=== PATIENT | female | born 1965 | race Hispanic/Latino ===

== ENCOUNTER 2018-08-13 11:24 | Emergency (ER) | payer OTHER ==
[2018-08-13] MEDS ORDERED: ONDANSETRON 4 MG/2 ML VIAL ONE (12:43)
[2018-08-13] MEDS ORDERED: MORPHINE 2 MG/ML SYR ONE (12:43)
[2018-08-13 12:44] LABS: Absolute Lymphocytes (CBC) 1.1 K/uL (0.7-4.9); Absolute Monocytes 0.5 K/uL (0.1-1.3); Absolute Neutrophil 7.5 K/uL (1.8-8.0); Basophils % 0.6 % (0-1.3); Eosinophils % 1.7 % (0-4.4); Hematocrit 42.1 % (36.0-45.0); Lymphocytes % 11.4 % (15.3-44.8); MCH 27.1 pg (27.0-35.0); MCV 80.4 fL (80-100); MPV 8.9 fL (7.6-11.3); Monocytes % 5.5 % (3.3-12.3); RBC Red Blood Cell Count 5.23 M/uL (3.86-4.86)
[2018-08-13 12:52] LABS: Potassium 3.7 mmol/L (3.5-5.1)
--- NOTE | 2018-08-13 13:38 | RAD REPORT ---
EXAM DESCRIPTION: CTFacial Bones W Con Mpr08/13/2018 1:19 pm CLINICAL HISTORY: Right facial pain and swelling COMPARISON: None. TECHNIQUE: Computed axial tomography of the face obtained with coronal and sagittal reconstruction. 50 cc Isovue-[address] scans are performed using dose optimization technique as appropriate and may include automated exposure control or mA/KV adjustment according to patient size. FINDINGS: Edema is present within the subcutaneous tissues the right face. An abscess is not seen. The parotid and submandibular glands appear unremarkable. The parapharyngeal fat is clear. Fluid within the sinuses is not noted. Mild opacification of the right mastoids IMPRESSION: Mild edema within the subcutaneous tissues of the right face may indicate a cellulitis Mild opacification the right mastoids may indicate a mild mastoiditis .
[2018-08-13] MEDS ORDERED: MORPHINE 4 MG/ML SYR ONE (14:48)
[2018-08-13] MEDS ORDERED: CEFTRIAXONE/SWI 1gm 1 GM/10 ML SYR ONE (14:49)
[2018-08-13] MEDS ORDERED: KETOROLAC 30 MG/ML INJ ONE (14:49)
--- NOTE | 2018-08-13 15:37 | EDPHYS ---
Physician Documentation [facility] Name: Bryon Ortiz Age: 52 yrs Sex: Female : 1965 Arrival Date: 08/13/2018 Time: 11:27 Bed 9 Private MD: Darryl Murray C ED Physician Darryl Figueredo HPI: 08/13 12:08 This 52 yrs old Female presents to ER via Ambulatory with complaints of Ear jmm Pain. 12:08 The patient presents with pain, swelling. Onset: The symptoms/episode began/occurred jmm gradually, 1 day(s) ago. Modifying factors: The symptoms are alleviated by nothing, the symptoms are aggravated by nothing. This is a 52 year old female with a history of DM, htn that presents to the ED with right ear pain beginning yesterday. patient denies recent illness. patient also complains of right sided sore throat. 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 - Social history:: Smoking status: Patient/guardian denies using tobacco. - Ebola Screening: : Patient denies travel to an Ebola-affected area in the 21 days before illness onset. ROS: 12:08 Constitutional: Negative for fever, chills, and weight loss. jmm 12:08 Cardiovascular: Negative for chest pain, palpitations, and edema, Respiratory: Negative for shortness of breath, cough, wheezing, and pleuritic chest pain, Skin: Negative for injury, rash, and discoloration, Neuro: Negative for headache, weakness, numbness, tingling, and seizure. 12:08 ENT: Positive for ear pain, sore throat. 12:08 All other systems are negative. Exam: 12:08 Constitutional: This is a well developed, well nourished patient who is awake, alert, jmm and in no acute distress. Head/Face: atraumatic. Eyes: EOMI, no conjunctival erythema appreciated 12:08 Cardiovascular: Regular rate and rhythm. No edema appreciated Respiratory: Normal respirations, no respiratory distress appreciated Back: Normal ROM Skin: General appearance color normal MS/ Extremity: Moves all extremities, no obvious deformities appreciated, no edema noted to the lower extremities Neuro: Awake and alert, normal gait Psych: Behavior is normal, Mood is normal, Patient is cooperative and pleasant 12:08 ENT: TM's: erythema, that is mild, on the right, Posterior pharynx: is normal. 12:08 Neck: right sided submandibular swelling. Vital Signs: 11:32 BP 171 / 105; Pulse 112; Resp 20; Temp 97.6; Pulse Ox 96% on R/A; Weight 90.72 kg (R); aj1 Height 4 ft. 11 in. (149.86 cm) (R); Pain 9/10; 14:56 BP 152 / 79; Pulse 99; Resp 14; Pulse Ox 96% on R/A; Pain 4/10; ss 11:32 Body Mass Index 40.39 (90.72 kg, 149.86 cm) aj1 MDM: 12:08 Patient medically screened. [facility] 15:32 Data reviewed: vital signs, nurses notes. Counseling: I had a detailed discussion with [facility] the patient and/or guardian regarding: the historical points, exam findings, and any diagnostic results supporting the discharge/admit diagnosis, lab results, radiology results, the need for outpatient follow up, to return to the emergency department if symptoms worsen or persist or if there are any questions or concerns that arise at home. 15:32 Data interpreted: Pulse oximetry: on room air is 96 %. Interpretation: normal. [facility] 08/13 12:10 Order name: Creatinine for Radiology; Complete Time: 12:54 [facility] 08/13 12:10 Order name: BMP; Complete Time: 12:54 [facility] 08/13 12:10 Order name: CBC with Diff; Complete Time: 12:54 [facility] 08/13 12:10 Order name: CT Facial Bones W/ Con \\T\\ Mpr; Complete Time: 13:40 [facility] 08/13 12:10 Order name: Saline Lock; Complete Time: 12:31 [facility] Administered Medications: 12:34 Drug: Zofran 2 mg Route: IVP; Site: right antecubital; ss 14:17 Follow up: Response: No adverse reaction; Nausea is decreased ss 12:39 Drug: morphine 2 mg Route: IVP; Site: right antecubital; ss 14:17 Follow up: Response: No adverse reaction; Pain is decreased ss 14:47 Drug: Rocephin 1 grams Route: IV; Rate: per protocol; Site: right antecubital; ss 14:50 Drug: morphine 4 mg Route: IVP; Site: right antecubital; ss 14:53 Drug: Ketorolac 30 mg Route: IVP; Site: right antecubital; ss 14:54 Not Given (Other Intervention Used): Rocephin - (cefTRIAXone) 1 grams IVPB once over 30 ss mins; (mix in 50 mL NS) Disposition: 08/14 07:45 Co-signature as Attending Physician, Darryl Figueredo MD. Disposition: 08/13/18 15:36 Discharged to Home. Impression: facial cellulitis. - Condition is Stable. - Discharge Instructions: Cellulitis, Adult. - Prescriptions for cefdinir 300 mg Oral capsule - take 1 capsule by ORAL route every 12 hours; 20 capsule. Tylenol- Codeine #3 300-30 mg Oral Tablet - take 1 tablet by ORAL route every 6 hours As needed; 20 tablet. - Medication Reconciliation Form, Thank You Letter, Antibiotic Education, Prescription Opioid Use form. - Follow up: Kacey Motley MD; When: 2 - 3 days; Reason: Recheck today's complaints, Continuance of care, Re-evaluation by your physician. Signatures: Dispatcher [employer] EDMS Magdalena Iyer RN RN aj1 Ricky Arriaga PA PA jmm Smirch, Shelby, RN RN Darryl Figueredo MD MD Hoda Mcrae Corrections: (The following items were deleted from the chart) 08/13 15:39 15:36 08/13/2018 15:36 Discharged to Home. Impression: facial cellulitis. Condition is eb Stable. Forms are Medication Reconciliation Form, Thank You Letter, Antibiotic Education, Prescription Opioid Use. Follow up: Kacey Motley; When: 2 - 3 days; Reason: Recheck today's complaints, Continuance of care, Re-evaluation by your physician. michelet
--- NOTE | 2018-08-13 15:37 | ER ---
Nurse's Notes [facility] Name: Bryon Ortiz Age: 52 yrs Sex: Female : 1965 Arrival Date: 08/13/2018 Time: 11:27 Bed 9 Private MD: Darryl Murray C Diagnosis: facial cellulitis Presentation: 08/13 11:30 Presenting complaint: Patient states: Right ear pain since yesterday. Reports chills. aj1 Denies drainage from right ear. Transition of care: patient was not received from another setting of care. Onset of symptoms was August 12, 2018. Risk Assessment: Do you want to hurt yourself or someone else? Patient reports no desire to harm self or others. Initial Sepsis Screen: Does the patient meet any 2 criteria? No. Patient's initial sepsis screen is negative. Does the patient have a suspected source of infection? No. Patient's initial sepsis screen is negative. Care prior to arrival: None. 11:30 Method Of Arrival: Ambulatory aj1 11:30 Acuity: DELORES 4 aj1 Triage Assessment: 11:32 General: Appears in no apparent distress. uncomfortable, Behavior is calm, cooperative, aj1 appropriate for age. Pain: Complains of pain in right ear Pain. Pain: Pain currently is 9 out of 10 on a pain scale. EENT: Reports ear pain. Neuro: Level of Consciousness is awake, alert, obeys commands. Cardiovascular: Patient's skin is warm and dry. Respiratory: Airway is patent Respiratory effort is even, unlabored, Respiratory pattern is regular, symmetrical. 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 - Social history:: Smoking status: Patient/guardian denies using tobacco. - Ebola Screening: : Patient denies travel to an Ebola-affected area in the 21 days before illness onset. Screenin:35 Abuse screen: Denies threats or abuse. Denies injuries from another. Nutritional aj1 screening: No deficits noted. Tuberculosis screening: No symptoms or risk factors identified. Assessment: 11:35 General: Appears in no apparent distress. uncomfortable, Behavior is calm, cooperative, aj1 appropriate for age. Pain: Complains of pain in right ear Pain radiates to right jaw Pain currently is 9 out of 10 on a pain scale. Quality of pain is described as sharp, stabbing. Neuro: Level of Consciousness is awake, alert, obeys commands. Cardiovascular: Patient's skin is warm and dry. Respiratory: Airway is patent Respiratory effort is even, unlabored, Respiratory pattern is regular, symmetrical. GI: No signs and/or symptoms were reported involving the gastrointestinal system. : No signs and/or symptoms were reported regarding the genitourinary system. EENT: Reports ear pain. Derm: No signs and/or symptoms reported regarding the dermatologic system. Skin is pink, warm \\T\\ dry. normal. Musculoskeletal: No signs and/or symptoms reported regarding the musculoskeletal system. Circulation, motion, and sensation intact. Vital Signs: 11:32 BP 171 / 105; Pulse 112; Resp 20; Temp 97.6; Pulse Ox 96% on R/A; Weight 90.72 kg (R); aj1 Height 4 ft. 11 in. (149.86 cm) (R); Pain 9/10; 14:56 BP 152 / 79; Pulse 99; Resp 14; Pulse Ox 96% on R/A; Pain 4/10; ss 11:32 Body Mass Index 40.39 (90.72 kg, 149.86 cm) aj1 ED Course: 11:27 Patient arrived in ED. sb2 11:27 Darryl Murray MD is Private Physician. sb2 11:31 Triage completed. aj1 11:32 Arm band placed on Patient placed in an exam room. aj1 11:35 Patient has correct armband on for positive identification. Bed in low position. aj1 11:35 No provider procedures requiring assistance completed. aj1 11:36 Ricky Arriaga PA is PHCP. [facility] 11:36 Darryl Figueredo MD is Attending Physician. [facility] 12:25 Racheal Connelly RN is Primary Nurse. ss 12:31 Inserted saline lock: 20 gauge in right antecubital area, using aseptic technique. ss Blood collected. 13:20 CT Facial Bones W/ Con \\T\\ Mpr In Process Unspecified. EDMS 15:35 Kacey Motley MD is Referral Physician. jmm 15:45 IV discontinued, intact, bleeding controlled, No redness/swelling at site. Pressure ss dressing applied. Administered Medications: 12:34 Drug: Zofran 2 mg Route: IVP; Site: right antecubital; ss 14:17 Follow up: Response: No adverse reaction; Nausea is decreased ss 12:39 Drug: morphine 2 mg Route: IVP; Site: right antecubital; ss 14:17 Follow up: Response: No adverse reaction; Pain is decreased ss 14:47 Drug: Rocephin 1 grams Route: IV; Rate: per protocol; Site: right antecubital; ss 14:50 Drug: morphine 4 mg Route: IVP; Site: right antecubital; ss 14:53 Drug: Ketorolac 30 mg Route: IVP; Site: right antecubital; ss 14:54 Not Given (Other Intervention Used): Rocephin - (cefTRIAXone) 1 grams IVPB once over 30 ss mins; (mix in 50 mL NS) Outcome: 15:36 Discharge ordered by MD. jmm 15:39 Patient left the ED. eb 15:45 Discharged to home ambulatory, with significant other. ss 15:45 Condition: good 15:45 Discharge instructions given to patient, family, Instructed on discharge instructions, follow up and referral plans. medication usage, Demonstrated understanding of instructions, follow-up care, medications, Prescriptions given X 2. Signatures: Dispatcher [employer] EDMS Magdalena Iyer RN RN aj1 Ricky Arriaga PA PA jmm Smirch, Shelby, RN RN ss Billeau, Sheri sb2 Hoda Mcrae
[2018-08-13 15:55] VITALS: TEMP 97.6; O2SAT 96
[2018-08-13 15:56] VITALS: BP 152/79
== END 2018-08-13 15:39 | disposition home or self-care (01) ==
LOC: ER 11:24
DX: L03.211 Cellulitis of face (principal); I10 Essential (primary) hypertension; E11.9 Type 2 diabetes mellitus without complications; Z88.0 Allergy status to penicillin
CPT/HCPCS: 36415; 70487; 76377; 80048; 85025; 96374; 96375; 99284; J0696; J2270; J2405; Q9967

== ENCOUNTER 2019-06-12 17:21 | Emergency (ER) | payer OTHER, SELFPAY ==
[2019-06-12] MEDS ORDERED: KETOROLAC 30 MG/ML INJ ONE (18:24)
[2019-06-12] MEDS ORDERED: METHYLPREDNISOLONE 125 MG INJ ONE (18:24)
--- NOTE | 2019-06-12 18:24 | ER ---
Nurse's Notes [facility] Name: Bryon Ortiz Age: 53 yrs Sex: Female : 1965 Arrival Date: 06/12/2019 Time: 17:22 Bed 18 Private MD: Diagnosis: Rash and other nonspecific skin eruption Presentation: 06/12 17:41 Presenting complaint: Patient states: R CALF WOUND x 2 DAYS. Transition of care: ss patient was not received from another setting of care. Onset of symptoms is unknown. Risk Assessment: Do you want to hurt yourself or someone else? Patient reports no desire to harm self or others. Initial Sepsis Screen: Does the patient meet any 2 criteria? No. Patient's initial sepsis screen is negative. Does the patient have a suspected source of infection? No. Patient's initial sepsis screen is negative. Care prior to arrival: None. 17:41 Method Of Arrival: Ambulatory 17:41 Acuity: DELORES 3 ss Historical: - Allergies: 17:43 PENICILLINS; ss 17:43 Tylenol; ss - Home Meds: 17:43 metformin 500 mg oral tab 1 tab 2 times per day [Active]; valsartan 160 mg oral tab 1 ss tab once daily [Active]; hydrochlorothiazide 12.5 mg Oral tab 1 tab once daily [Active]; - PMHx: 17:43 Diabetes - NIDDM; Hypertension; ss - Immunization history:: Adult Immunizations up to date. - Social history:: Smoking status: Patient/guardian denies using tobacco, Patient uses Patient/guardian denies using alcohol, street drugs, The patient lives with family. - Ebola Screening: : No symptoms or risks identified at this time. - Family history:: not pertinent. Vital Signs: 17:43 BP 170 / 98; Pulse 98; Resp 18; Temp 98.2; Pulse Ox 98% ; Weight 81.65 kg; Height 4 ft. ss 11 in. (149.86 cm); 17:43 Body Mass Index 36.36 (81.65 kg, 149.86 cm) ED Course: 17:22 Patient arrived in ED. as 17:42 Triage completed. ss 17:43 Arm band placed on. ss 17:54 Livia Levine MD is Attending Physician. ma 18:13 Merrill, Omega, RN is Primary Nurse. sg Administered Medications: 18:30 Drug: TORadol 60 mg Route: IM; Site: right ventrogluteal; sg 18:30 Drug: MethylPREDNISolone Sodium Succinate 125 mg Route: IM; Site: right ventrogluteal; sg Outcome: 18:23 Discharge ordered by MD. merrill 18:40 Patient left the ED. bd Signatures: Tiffany Licona Steven, RN RN sg Martinez, Amelia as Smirch, Shelby, RN RN Livia Levine MD MD ma2
--- NOTE | 2019-06-12 18:24 | EDPHYS ---
Physician Documentation [facility] Name: Bryon Ortzi Age: 53 yrs Sex: Female : 1965 Arrival Date: 06/12/2019 Time: 17:22 Bed 18 Private MD: ED Physician Livia Levine HPI: 06/12 18:20 This 53 yrs old Female presents to ER via Ambulatory with complaints of Insect ma2 Bite. 18:20 Onset: The symptoms/episode began/occurred gradually, 1 day(s) ago. Severity of ma2 symptoms: At their worst the symptoms were very mild in the emergency department the symptoms are unchanged. The patient has not experienced similar symptoms in the past. Historical: - Allergies: 17:43 PENICILLINS; ss 17:43 Tylenol; ss - Home Meds: 17:43 metformin 500 mg oral tab 1 tab 2 times per day [Active]; valsartan 160 mg oral tab 1 ss tab once daily [Active]; hydrochlorothiazide 12.5 mg Oral tab 1 tab once daily [Active]; - PMHx: 17:43 Diabetes - NIDDM; Hypertension; ss - Immunization history:: Adult Immunizations up to date. - Social history:: Smoking status: Patient/guardian denies using tobacco, Patient uses Patient/guardian denies using alcohol, street drugs, The patient lives with family. - Ebola Screening: : No symptoms or risks identified at this time. - Family history:: not pertinent. ROS: 18:20 Constitutional: Negative for fever, chills, and weight loss. ma2 18:20 All other systems are negative. Exam: 18:20 Constitutional: This is a well developed, well nourished patient who is awake, alert, ma2 and in no acute distress. Chest/axilla: Normal chest wall appearance and motion. Nontender with no deformity. No lesions are appreciated. Cardiovascular: Regular rate and rhythm with a normal S1 and S2. No gallops, murmurs, or rubs. Normal PMI, no JVD. No pulse deficits. Respiratory: Lungs have equal breath sounds bilaterally, clear to auscultation and percussion. No rales, rhonchi or wheezes noted. No increased work of breathing, no retractions or nasal flaring. Abdomen/GI: Soft, non-tender, with normal bowel sounds. No distension or tympany. No guarding or rebound. No evidence of tenderness throughout. Skin: hives, area of redness, otherwise Warm, dry with normal turgor. Normal color with no rashes, no lesions, and no evidence of cellulitis. MS/ Extremity: Pulses equal, no cyanosis. Neurovascular intact. Full, normal range of motion. Neuro: Awake and alert, GCS 15, oriented to person, place, time, and situation. Cranial nerves II-XII grossly intact. Motor strength 5/5 in all extremities. Sensory grossly intact. Cerebellar exam normal. Normal gait. Vital Signs: 17:43 BP 170 / 98; Pulse 98; Resp 18; Temp 98.2; Pulse Ox 98% ; Weight 81.65 kg; Height 4 ft. ss 11 in. (149.86 cm); 17:43 Body Mass Index 36.36 (81.65 kg, 149.86 cm) ss MDM: 17:54 Patient medically screened. ma2 18:20 Differential Diagnosis cellulitis vs allergic reaction . Data reviewed: vital signs, ma2 nurses notes. Counseling: I had a detailed discussion with the patient and/or guardian regarding: the historical points, exam findings, and any diagnostic results supporting the discharge/admit diagnosis, the presence of at least one elevated blood pressure reading (>120/80) during this emergency department visit, the need for outpatient follow up. Response to treatment: the patient's symptoms have markedly improved after treatment. Administered Medications: 18:30 Drug: TORadol 60 mg Route: IM; Site: right ventrogluteal; sg 18:30 Drug: MethylPREDNISolone Sodium Succinate 125 mg Route: IM; Site: right ventrogluteal; sg Disposition: 06/12/19 18:23 Discharged to Home. Impression: Rash and other nonspecific skin eruption. - Condition is Stable. - Discharge Instructions: Rash, [id number]. - Prescriptions for Benadryl 25 mg Oral Capsule - take 1 capsule by ORAL route every 6 hours As needed; 30 tablet. Nystatin- Triamcinolone 100,000-0.1 unit/g-% Topical Cream - apply 1 application by TOPICAL route 2 times per day; 1 tube. Medrol ([place]) 4 mg Oral Tablets, Dose Pack - take 1 tablet by ORAL route as directed - follow package instructions; 1 packet. Pepcid 20 mg Oral Tablet - take 1 tablet by ORAL route once daily for 10 days; 10 tablet. - Work release form, Medication Reconciliation Form, Thank You Letter, Antibiotic Education, Prescription Opioid Use form. - Follow up: Private Physician; When: Tomorrow; Reason: Continuance of care. Signatures: Tiffany Licona Steven RN RN sg Racheal Connelly RN RN ss Livia Levine MD MD ma2 Corrections: (The following items were deleted from the chart) 18:40 18:23 06/12/2019 18:23 Discharged to Home. Impression: Rash and other nonspecific skin bd eruption. Condition is Stable. Forms are Medication Reconciliation Form, Thank You Letter, Antibiotic Education, Prescription Opioid Use. Follow up: Private Physician; When: Tomorrow; Reason: Continuance of care. ma2
[2019-06-12 18:50] VITALS: BP 170/98; TEMP 98.2; O2SAT 98
== END 2019-06-12 18:40 | disposition home or self-care (01) ==
LOC: ER 17:21
DX: R21 Rash and other nonspecific skin eruption (principal); E11.9 Type 2 diabetes mellitus without complications; I10 Essential (primary) hypertension; Z88.0 Allergy status to penicillin
CPT/HCPCS: 96372; 99282; J2930

== ENCOUNTER 2020-10-13 18:04 | Inpatient (IN) | payer BC, OTHER ==
[2020-10-13 20:24] LABS: Absolute Lymphocytes (CBC) 0.6 K/uL (0.7-4.9); Basophils % 0.3 % (0-1.3); Hematocrit 43.1 % (36.0-45.0); Lymphocytes % 4.1 % (15.3-44.8); MPV 8.6 fL (7.6-11.3)
[2020-10-13] MEDS ORDERED: ONDANSETRON 4 MG/2 ML VIAL ONE (20:36)
[2020-10-13] MEDS ORDERED: MORPHINE 4 MG/ML SYR ONE (20:36)
[2020-10-13] MEDS ORDERED: NA CHLORIDE 0.9% 1,000 ML ONE ×2 (20:36→22:36)
[2020-10-13] MEDS ORDERED: FAMOTIDINE 20 MG/2 ML VIAL IV ONE (20:36)
[2020-10-13 20:43] LABS: Albumin 2.9 g/dL (3.4-5.0); Bilirubin Direct 1.9 mg/dL (0-0.2); Bilirubin Total 3.7 mg/dL (0.2-1.0); Potassium 3.6 mmol/L (3.5-5.1); Protein, Total 8.4 g/dL (6.4-8.2)
[2020-10-13 21:00] LABS: Urine Blood 2+ (NEG); Urine Glucose TRACE (NEG); Urine Protein 3+ (NEG); Urine Specific Gravity 1.025 (1.005-1.030); Urine pH 5.5 (5.0-7.0)
[2020-10-13 21:01] LABS: Blood Morphology Comment NOT SEEN (NOT SEEN); Platelet Estimate ADEQ
[2020-10-13 21:10] LABS: Urine Bacteria >50 /HPF (<20); Urine Urothelial Cells <5 /HPF (NONE SEEN)
[2020-10-13] MEDS ORDERED: Levofloxacin500mg IV 500 MG/100 ML BAG IV ONE (22:36)
--- NOTE | 2020-10-13 22:48 | ER ---
Nurse's Notes [facility] Name: Bryon Ortiz Age: 54 yrs Sex: Female : 1965 Arrival Date: 10/13/2020 Time: 18:13 Bed 14 [facility] MD: Diagnosis: Pyelonephritis;Vomiting Presentation: 10/13 18:21 Chief complaint: Patient states: N/V/D for 4 days. + abd pain. Low grade fever. ll1 Coronavirus screen: Client denies travel out of the [place] in the last 14 days. At this time, the client does not indicate any symptoms associated with coronavirus-19. Ebola Screen: Patient denies travel to an Ebola-affected area in the 21 days before illness onset. Initial Sepsis Screen: Does the patient meet any 2 criteria? HR > 90 bpm. No. Patient's initial sepsis screen is negative. Does the patient have a suspected source of infection? Yes: Acute abdominal pain. Risk Assessment: Do you want to hurt yourself or someone else? Patient reports no desire to harm self or others. Onset of symptoms was October 09, 2020. 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 - Social history:: Smoking status: Patient denies any tobacco usage or history of. Screenin:31 Abuse screen: Denies threats or abuse. Nutritional screening: No deficits noted. vg1 Tuberculosis screening: No symptoms or risk factors identified. Fall Risk No fall in past 12 months (0 pts). No secondary diagnosis (0 pts). IV access (20 points). Ambulatory Aid- None/Bed Rest/Nurse Assist (0 pts). Gait- Weak (10 pts.). Mental Status- Oriented to own ability (0 pts). Total Bingham Fall Scale indicates Low Risk Score (25-44 pts). Fall prevention measures have been instituted. Side Rails Up X 2 Placed close to Nursing Station. Assessment: 20:20 General: Appears in no apparent distress. uncomfortable, Behavior is calm, cooperative. vg1 Pain: Complains of pain in abdomen Pain currently is 8 out of 10 on a pain scale. Pain began 2-3 days ago. Neuro: Level of Consciousness is awake, alert, obeys commands, Oriented to person, place, time, situation. Cardiovascular: Patient's skin is warm and dry. Respiratory: Airway is patent Respiratory effort is even, unlabored, Respiratory pattern is regular, symmetrical. GI: Bowel sounds present X 4 quads. Abd is soft X 4 quads Abdomen is tender to palpation X 4 quads. GI: Reports diarrhea, nausea, vomiting. : Urine is blood tinged. EENT: No signs and/or symptoms were reported regarding the EENT system. Derm: Skin is intact, is healthy with good turgor. Musculoskeletal: Circulation, motion, and sensation intact. 22:30 Reassessment: Dr. Taylor at bedside to discuss plan of care with patient. lp1 10/14 00:07 Reassessment: Patient appears in no apparent distress at this time. Patient and/or mg2 family updated on plan of care and expected duration. Pain level reassessed. Patient is alert, oriented x 3, equal unlabored respirations, skin warm/dry/pink. patient informed about the plan for admission. Vital Signs: 10/13 18:21 BP 141 / 91; Pulse 110; Resp 18; Temp 97.8; Pulse Ox 98% ; Pain 8/10; ll1 20:00 BP 135 / 55; Pulse 117; Resp 16; Pulse Ox 98% on R/A; vg1 22:25 BP 129 / 69; Pulse 94; Resp 17; Temp 99.3(O); Pulse Ox 96% on R/A; lp1 10/14 00:08 BP 141 / 78; Pulse 95; Resp 18; Pulse Ox 94% on R/A; mg2 ED Course: 10/13 18:13 Patient arrived in ED. ds1 18:23 Triage completed. ll1 18:23 Arm band placed on. ll1 19:31 Jack Steward MD is Attending Physician. mh7 19:46 Pascale Judge, RN is Primary Nurse. vg1 20:15 Initial lab(s) drawn, by me, sent to lab. Urine collected: EKG done. Inserted saline vg1 lock: 20 gauge in right antecubital area, using aseptic technique. Blood collected. 20:31 Patient has correct armband on for positive identification. Bed in low position. Call vg1 light in reach. Side rails up X2. 22:46 Judie Taylor MD is Hospitalizing Provider. [facility] 10/14 00:07 No provider procedures requiring assistance completed. Patient admitted, IV remains in mg2 place. 07:20 Primary Nurse role handed off by Pascale Judge RN bd Administered Medications: 10/13 20:27 Drug: NS 0.9% 1000 ml Route: IV; Rate: 1000 ml; Site: right antecubital; vg1 22:06 Follow up: IV Status: Completed infusion vg1 20:27 Drug: morphine 4 mg Route: IVP; Site: right antecubital; vg1 22:06 Follow up: Response: Pain is decreased vg1 20:27 Drug: Zofran (Ondansetron) 4 mg Route: IVP; Site: right antecubital; vg1 22:06 Follow up: Response: No adverse reaction vg1 20:28 Drug: Pepcid 20 mg Route: IVP; Site: right antecubital; vg1 22:05 Follow up: Response: No adverse reaction vg1 22:28 Drug: NS 0.9% 1000 ml Route: IV; Rate: 1000 ml; Site: right antecubital; lp1 23:59 Follow up: IV Status: Completed infusion; IV Intake: 1000ml vg1 22:28 Drug: LevaQUIN 500 mg Volume: 100 ml; Route: IVPB; Infused Over: 60 mins; Site: right lp1 antecubital; 23:57 Follow up: IV Status: Completed infusion vg1 Intake: 23:59 IV: 1000ml; Total: 1000ml. vg1 Outcome: 22:47 Decision to Hospitalize by Provider. [facility] 10/14 07:53 Patient left the ED. Signatures: Tiffany Licona Demi ds1 Racheal Connelly RN RN ss Aleta Garrett RN RN lp1 Sami Sommers RN RN mg2 Pascale Judge RN RN 1 Natalee Salas RN RN 1 Jack Steward MD MD [facility]
--- NOTE | 2020-10-13 22:48 | EDPHYS ---
Physician Documentation [facility] Name: Bryon Ortiz Age: 54 yrs Sex: Female : 1965 Arrival Date: 10/13/2020 Time: 18:13 Bed 14 Private MD: ED Physician Jack Steward HPI: 10/13 20:23 This 54 yrs old Female presents to ER via EMS with complaints of Abdominal mh7 Pain, Nausea/Vomiting. 20:23 The patient presents with abdominal pain in the upper abdomen. Onset: The mh7 symptoms/episode began/occurred 2 day(s) ago. The symptoms do not radiate. Associated signs and symptoms: Pertinent positives: nausea, vomiting, and diarrhea, fever, Pertinent negatives: anorexia, blood in stools, chest pain, constipation, dysuria, headache, hematuria, palpitations, shortness of breath, vaginal discharge, vomiting blood. The symptoms are described as intermittent, vague, waxing/waning. Modifying factors: The symptoms are alleviated by nothing, the symptoms are aggravated by food. Severity of pain: At its worst the pain was moderate yesterday, in the emergency department the pain is unchanged. 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 - Social history:: Smoking status: Patient denies any tobacco usage or history of. ROS: 20:23 Constitutional: Negative for fever, chills, and weight loss, Eyes: Negative for injury, mh7 pain, redness, and discharge, ENT: Negative for injury, pain, and discharge, Neck: Negative for injury, pain, and swelling, Cardiovascular: Negative for chest pain, palpitations, and edema, Respiratory: Negative for shortness of breath, cough, wheezing, and pleuritic chest pain, Back: Negative for injury and pain, : Negative for injury, bleeding, discharge, and swelling, MS/Extremity: Negative for injury and deformity, Skin: Negative for injury, rash, and discoloration, Neuro: Negative for headache, weakness, numbness, tingling, and seizure, Psych: Negative for depression, anxiety, suicide ideation, homicidal ideation, and hallucinations, Allergy/Immunology: Negative for hives, rash, and allergies, Endocrine: Negative for neck swelling, polydipsia, polyuria, polyphagia, and marked weight changes, Hematologic/Lymphatic: Negative for swollen nodes, abnormal bleeding, and unusual bruising. Exam: 20:23 Constitutional: This is a well developed, well nourished patient who is awake, alert, mh7 and in no acute distress. Head/Face: Normocephalic, atraumatic. Eyes: Pupils equal round and reactive to light, extra-ocular motions intact. Lids and lashes normal. Conjunctiva and sclera are non-icteric and not injected. Cornea within normal limits. Periorbital areas with no swelling, redness, or edema. Neck: Trachea midline, no thyromegaly or masses palpated, and no cervical lymphadenopathy. Supple, full range of motion without nuchal rigidity, or vertebral point tenderness. No Meningismus. Chest/axilla: Normal chest wall appearance and motion. Nontender with no deformity. No lesions are appreciated. Cardiovascular: Regular rate and rhythm with a normal S1 and S2. No gallops, murmurs, or rubs. Normal PMI, no JVD. No pulse deficits. Respiratory: Lungs have equal breath sounds bilaterally, clear to auscultation and percussion. No rales, rhonchi or wheezes noted. No increased work of breathing, no retractions or nasal flaring. 20:23 Back: No spinal tenderness. No costovertebral tenderness. Full range of motion. Skin: Warm, dry with normal turgor. Normal color with no rashes, no lesions, and no evidence of cellulitis. MS/ Extremity: Pulses equal, no cyanosis. Neurovascular intact. Full, normal range of motion. Neuro: Awake and alert, GCS 15, oriented to person, place, time, and situation. Cranial nerves II-XII grossly intact. Motor strength 5/5 in all extremities. Sensory grossly intact. Cerebellar exam normal. Normal gait. Psych: Awake, alert, with orientation to person, place and time. Behavior, mood, and affect are within normal limits. 20:23 Abdomen/GI: Inspection: obese Bowel sounds: normal, in all quadrants, Palpation: moderate abdominal tenderness, in all quadrants, Rectal exam: the exam is deferred, because of patient request, Indicators: McBurney's point is not tender, Conn's sign is negative, Rovsing's sign is negative, Obturator sign is negative, Psoas sign is negative, Liver: no appreciated palpable abnormalities, Hernia: not appreciated. Vital Signs: 18:21 BP 141 / 91; Pulse 110; Resp 18; Temp 97.8; Pulse Ox 98% ; Pain 8/10; ll1 20:00 BP 135 / 55; Pulse 117; Resp 16; Pulse Ox 98% on R/A; vg1 22:25 BP 129 / 69; Pulse 94; Resp 17; Temp 99.3(O); Pulse Ox 96% on R/A; lp1 10/14 00:08 BP 141 / 78; Pulse 95; Resp 18; Pulse Ox 94% on R/A; mg2 MDM: 10/13 22:45 Differential diagnosis: bowel obstruction, diverticulitis, gastritis, gastroesophageal mh7 reflux disease, non-specific abd pain, pancreatitis, Peptic Ulcer Disease, Pyelonephritis, Ureterolithiasis, urinary tract infection. Data reviewed: vital signs, nurses notes, lab test result(s), CBC, electrolytes, urinalysis, EKG, radiologic studies, CT scan. Data interpreted: Pulse oximetry: on room air is 98 %. Interpretation: normal. Counseling: I had a detailed discussion with the patient and/or guardian regarding: the historical points, exam findings, and any diagnostic results supporting the discharge/admit diagnosis, lab results, radiology results, the need for further work-up and treatment in the hospital. Response to treatment: the patient's symptoms have mildly improved after treatment. 22:47 Patient medically screened. [facility] 10/13 19:50 Order name: Basic Metabolic Panel [facility] 10/13 19:50 Order name: CBC with Diff [facility] 10/13 19:50 Order name: Hepatic Function [facility] 10/13 19:50 Order name: Lipase [facility] 10/13 20:29 Order name: CBC with Automated Diff; Complete Time: 21:05 [facility] 10/13 20:33 Order name: Urine Dipstick--Ancillary (enter results) [facility] 10/13 20:43 Order name: Basic Metabolic Panel; Complete Time: 21:05 [facility] 10/13 20:43 Order name: Liver (Hepatic) Function; Complete Time: 21:05 [facility] 10/13 20:43 Order name: Lipase; Complete Time: 21:05 [facility] 10/13 20:44 Order name: Urine Culture [facility] 10/13 20:44 Order name: Urine Microscopic Only [facility] 10/13 21:01 Order name: Urine Dipstick-Ancillary; Complete Time: 21:05 [facility] 10/13 21:01 Order name: Manual Differential; Complete Time: 21:05 [facility] 10/13 21:10 Order name: Urine Microscopic Only; Complete Time: 21:51 [facility] 10/13 19:50 Order name: IV Saline Lock; Complete Time: 20:27 [facility] 10/13 19:50 Order name: Labs collected and sent; Complete Time: 20:27 [facility] 10/13 19:50 Order name: CT Abd/Pelvis - IV Contrast Only [facility] 10/13 22:28 Order name: COVID-19 : Document "Date of Symptom Onset" if Symptomatic. [facility] 10/13 23:19 Order name: CORONAVIRUS [facility] 10/14 00:17 Order name: SARS-COV-2 RT PCR [facility] 10/14 02:04 Order name: Liver (Hepatic) Function [facility] 10/14 02:04 Order name: Thyroid Stimulating Hormone [facility] 10/14 05:24 Order name: CBC with Automated Diff [facility] 10/14 05:38 Order name: Comprehensive Metabolic Panel [facility] 10/13 19:50 Order name: Urine Dipstick-Ancillary (obtain specimen); Complete Time: 22:07 [facility] 10/13 19:50 Order name: EKG - Nurse/Tech; Complete Time: 20:27 7 Administered Medications: 20:27 Drug: NS 0.9% 1000 ml Route: IV; Rate: 1000 ml; Site: right antecubital; vg1 22:06 Follow up: IV Status: Completed infusion vg1 20:27 Drug: morphine 4 mg Route: IVP; Site: right antecubital; vg1 22:06 Follow up: Response: Pain is decreased vg1 20:27 Drug: Zofran (Ondansetron) 4 mg Route: IVP; Site: right antecubital; vg1 22:06 Follow up: Response: No adverse reaction vg1 20:28 Drug: Pepcid 20 mg Route: IVP; Site: right antecubital; vg1 22:05 Follow up: Response: No adverse reaction vg1 22:28 Drug: NS 0.9% 1000 ml Route: IV; Rate: 1000 ml; Site: right antecubital; lp1 23:59 Follow up: IV Status: Completed infusion; IV Intake: 1000ml vg1 22:28 Drug: LevaQUIN 500 mg Volume: 100 ml; Route: IVPB; Infused Over: 60 mins; Site: right lp1 antecubital; 23:57 Follow up: IV Status: Completed infusion vg1 Disposition: 10/13/20 22:47 Hospitalization ordered by Judie Taylor for Inpatient Admission. Preliminary diagnosis are Pyelonephritis, Vomiting. - Bed requested for Telemetry/MedSurg (Inpatient). - Status is Inpatient Admission. ss - Condition is Stable. - Problem is new. - Symptoms have improved. Signatures: Dispatcher [employer] EDMS Katie Rodriges RN RN mw Woody, Diana RN Racheal Carcamo RN RN ss Pena, Laura, RN RN 1 Pascale Judge RN RN 1 Natalee Salas RN RN 1 Jack Steward MD MD mh7 Corrections: (The following items were deleted from the chart) 10/14 00:20 10/13 22:47 Hospitalization Ordered by Judie Taylor MD for Inpatient Admission. Preliminary diagnosis is Pyelonephritis; Vomiting. Bed requested for Telemetry/MedSurg (Inpatient). Status is Inpatient Admission. Condition is Stable. Problem is new. Symptoms have improved. mh7 10/14 07:06 00:20 10/13/2020 22:47 Hospitalization Ordered by Judie Taylor MD for Inpatient dw Admission. Preliminary diagnosis is Pyelonephritis; Vomiting. Bed requested for [facility] ER HOLD. Status is Inpatient Admission. Condition is Stable. Problem is new. Symptoms have improved. kirit 07:53 07:06 10/13/2020 22:47 Hospitalization Ordered by Judie Taylor MD for Inpatient ss Admission. Preliminary diagnosis is Pyelonephritis; Vomiting. Bed requested for Telemetry/MedSurg (Inpatient). Status is Inpatient Admission. Condition is Stable. Problem is new. Symptoms have improved.
--- NOTE | 2020-10-13 23:04 | P.HP ---
Certification for Inpatient Patient admitted to: Observation With expected LOS: <2 Midnights Patient will require the following post-hospital care: None Practitioner: I am a practitioner with admitting privileges, knowledge of patient current condition, hospital course, and medical plan of care. Services: Services provided to patient in accordance with Admission requirements found in Title 42 Section 412.3 of the Code of Federal Regulations Patient History Date of Service: 10/13/20 Reason for admission: Nausea and vomiting History of Present Illness: 54 year old female with past medical history of HTN, diabetes mellitus type 2 on metformin, HL D admitted after presenting because of generalized body ache, weakness, nausea vomiting and transient diarrhea today. She admits to lightheadedness. She admits to flank pain. She denies any dysuria. She states her last episode of UTI was over a year ago. Her last hospitalization was over 8 years ago drain admission for cholecystectomy. On presentation she was noted with low-grade fever at 99.63, CT scan of the abdomen shows evidence of bilateral pyelonephritis with left ureteritis. She is being admitted for bilateral pyelonephritis. She states her nausea is somewhat improving with p.r.n. Zofran given. She admits to cough but no production of sputum since LAR today. She denies any cough contact. She denies any exposure to recent covid 19 exposure Allergies acetaminophen [From Tylenol] Allergy (Mild, Verified 07/13/12 10:47) Itching/Hives/Rash Penicillins Allergy (Mild, Verified 07/13/12 10:47) Shortness of breath Home medications list reviewed: No (unsure of 2 BP meds ) - Past Medical/Surgical History Has patient received pneumonia vaccine in the past: No Diabetic: No -: Hypertension -: Diabetes mellitus -: HLD -: APPENDECTOMY -: CHOLECYSTECTOMY - Social History Smoking Status: Never smoker Place of Residence: Home Review of Systems General: Chills, Weakness, Malaise Eyes: Unremarkable ENT: Unremarkable Respiratory: Cough, Dry Cardiovascular: Unremarkable Gastrointestinal: Nausea, Vomiting, Diarrhea Genitourinary: Unremarkable Musculoskeletal: Back Pain Integumentary: Unremarkable Neurological: Weakness Lymphatics: Unremarkable Physical Examination - Physical Exam General: Alert, Oriented x3, Cooperative, Obese HEENT: Atraumatic, Normocephalic, PERRLA Neck: Supple, 2+ carotid pulse no bruit, JVD not distended Respiratory: Clear to auscultation bilaterally, Normal air movement Cardiovascular: No edema, Normal pulses, Regular rate/rhythm, Normal S1 S2 Gastrointestinal: Normal bowel sounds, Soft and benign, Non-distended, No ascites, Tenderness (b/l CVA) Musculoskeletal: No clubbing, No swelling Integumentary: No rashes, No breakdown, No significant lesion Neurological: Normal speech, Normal strength at 5/5 x4 extr, Normal tone, Cranial nerves 3-12 intact - Studies Laboratory Data (last 24 hrs) 10/13/20 20:15: WBC 14.50 H, Hgb 14.0, Hct 43.1, Plt Count 176 10/13/20 20:15: Sodium 137, Potassium 3.6, BUN 19 H, Creatinine 1.21, Glucose 217 H, Total Bilirubin 3.7 H, AST 22, ALT 46, Alkaline Phosphatase 261 H, Lipase 89 Imagings Data: CT abdomen-uterine fibroids, bilateral pyelonephritis, left ureteritis, no obstructing renal calculi Assessment and Plan - Problems (Diagnosis) (1) Pyelonephritis Current Visit: Yes Status: Acute (2) Nausea & vomiting Current Visit: Yes Status: Acute (3) HTN (hypertension) Current Visit: Yes Status: Acute (4) Diabetes Current Visit: Yes Status: Acute - Plan Bilateral pyelonephritis-follow urine culture all, obtain blood culture x2. -start empirical Levaquin -start gentle IV hydration with normal saline. Renally dose of meds We do p.r.n. NSAID as needed for fever since allergies to acetaminophen #Hypertension-obtain home med list -Do IV hydralazine p.r.n. for now #Diabetes mellitus-2 insulin sliding scale. Resume metformin Accu-Cheks with q.h.s. and QAC # Elevated LFT- normal AST/ALT but elevated AP -will monitor -review home meds list -s/p cholecysectomy noted #DVT prophylaxis-subcutaneous Lovenox #Advanced directive-full code Discharge Plan: Home Plan to discharge in: 24 Hours - Advance Directives Does patient have a Living Will: No Does patient have a Durable POA for Healthcare: No - Code Status/Comfort Care Code Status: Full Code Physician Review: Patient Assessed, Agree with Above Assessment and Plan Time Spent Managing Pts Care (In Minutes): 65
[2020-10-13] MEDS ORDERED: GUAIFENESIN/DM 5 ML UCUP PO PRN (23:10)
[2020-10-13] MEDS ORDERED: LORAZEPAM 0.5 MG TABLET PO PRN (23:10)
[2020-10-13] MEDS ORDERED: KETOROLAC 30 MG/ML INJ IV PRN (23:12)
[2020-10-13] MEDS ORDERED: Levofloxacin 750mg IV 750 MG/150 ML BAG IV SCH (23:45)
[2020-10-14] MEDS ORDERED: BENZONATATE 100 MG CAP PO PRN (00:43)
[2020-10-14] MEDS ORDERED: IPRATROPIUM BROM 0.5MG/2.5ML NEB PRN (00:43)
[2020-10-14] MEDS: NA CHLORIDE 0.9% 1,000 ML IV SCH ×3 (01:42→23:25)
[2020-10-14] MEDS ORDERED: NA CHLORIDE 0.9% 1,000 ML ONE (01:55)
[2020-10-14 02:00] LABS: Albumin 2.3 g/dL (3.4-5.0); Bilirubin Direct 1.3 mg/dL (0-0.2); Bilirubin Total 2.6 mg/dL (0.2-1.0); Protein, Total 6.7 g/dL (6.4-8.2); Thyroid Stimulating Hormone 1.06 uIU/mL (0.360-3.740)
[2020-10-14] MEDS ORDERED: KETOROLAC 30 MG/ML INJ ONE (03:58)
[2020-10-14 05:16] LABS: Absolute Lymphocytes (CBC) 0.5 K/uL (0.7-4.9); Basophils % 0.2 % (0-1.3); Hematocrit 34.6 % (36.0-45.0); Lymphocytes % 4.2 % (15.3-44.8); RBC Red Blood Cell Count 4.32 M/uL (3.86-4.86)
[2020-10-14 05:38] LABS: Albumin 2.3 g/dL (3.4-5.0); Bilirubin Total 2.8 mg/dL (0.2-1.0); Potassium 3.4 mmol/L (3.5-5.1); Protein, Total 6.6 g/dL (6.4-8.2)
[2020-10-14] MEDS: INSULIN -REGULAR HUMAN 50 UNIT/0.5 ML ML SQ SCH ×4 (07:30→20:32)
[2020-10-14] MEDS: IVERMECTIN 3 MG TABLET PO SCH (08:26)
[2020-10-14] MEDS: ENOXAPARIN 40 MG/0.4 ML SQ SCH (08:27)
[2020-10-14] MEDS: FAMOTIDINE 20 MG TAB PO SCH (08:27)
[2020-10-14] MEDS: ZINC SULFATE 220 MG CAP PO SCH (08:27)
[2020-10-14] MEDS ORDERED: INFLUENZA VACCINE (for 3y+) 0.5 ML DOSE IMVAC ONE (09:00)
[2020-10-14] MEDS ORDERED: FAMOTIDINE 20 MG TAB PO SCH (09:00)
[2020-10-14] MEDS ORDERED: dexAMETHasone 4 MG TAB PO SCH (09:00)
--- NOTE | 2020-10-14 11:09 | RAD REPORT ---
EXAM DESCRIPTION: CT - Abdomen Pelvis W Contrast - 10/14/2020 1:09 am CLINICAL HISTORY: Abdominal pain with nausea and vomiting. COMPARISON: CT abdomen and pelvis without contrast December 21, 2017. TECHNIQUE: Axial CT imaging of the abdomen and pelvis performed with intravenous contrast. Reformatt ed coronal and sagittal images reviewed. A dose reduction technique was utilized with automated exposure control according to patient size. FINDINGS: Clear lung bases. Heart is normal in size. Normal liver size and contour.Mild fatty infiltration. There is mild postcholecystectomy biliary dila tation. No obstructing stone or mass. Normal spleen. Accessory splenule adjacent to the splenic hilum . Normal pancreas, adrenal glands. There are mild low-attenuation parenchymal defects within the right upper and lower pole of the kidne y as well as throughout the left kidney. There is mild bilateral perinephric edema, left greater than right. There is subtle urothelial enhancement within the left renal pelvis and proximal left ureter. There is minimal fullness of the right renal pelvis. There is no obstructing stone or mass in either collecting system. Normal aorta and inferior vena cava caliber. No retroperitoneal lymphadenopathy. Mesenteric vessels a ppear normal. Normal stomach. Small bowel loops are unremarkable. Appendix is not seen. Mild diverticulosis in the proximal sigmoid colon. No diverticulitis. There is no ascites or free air. No mesenteric adenopathy. Normal bladder. There are heterogeneous slightly hyperdense masses within the uterus. The largest is in the anterior left lower uterine segments, 4 cm, compatible with fibroids. No pelvic adenopathy. Mi ld degenerative changes in the thoracic and lumbar spine. Intact bony pelvis. Normal hips. IMPRESSION: 1. Mild bilateral pyelonephritis without abscess. Mild left ureteritis. Minimal fullness of the right renal pelvis with no obstructing stone or mass. 2. Very mild hepatic steatosis. 3. Mild sigmoid colon diverticulosis without diverticulitis. 4. Uterine fibroids. 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 The interpreting radiologist is fully responsible for the content of the report.
--- NOTE | 2020-10-14 11:29 | P.PN ---
Subjective Date of Service: 10/14/20 Primary Care Provider: unknown Chief Complaint: Nausea and vomiting Subjective: Other (No further nausea vomiting. Flank pain improved.) Physical Examination - Vital Signs Temperature: 97.6 F Blood Pressure: 130/63 Pulse: 94 Respirations: 22 Pulse Ox (%): 94 - Studies Laboratory Data (last 24 hrs) 10/13/20 20:15: WBC 14.50 H, Hgb 14.0, Hct 43.1, Plt Count 176 10/13/20 20:15: Sodium 137, Potassium 3.6, BUN 19 H, Creatinine 1.21, Glucose 217 H, Total Bilirubin 3.7 H, AST 22, ALT 46, Alkaline Phosphatase 261 H, Lipase 89 Assessment & Plan Discharge Plan: Home Plan to discharge in: 48 Hours Physician Review Additional Text: Physical exam: Patient alert, cooperative. No acute distress noted. Heart: Regular rate and rhythm Lungs: Clear to auscultation Abdomen: Flank pain noted bilateral. Abdomen soft. Nondistended. Extremities: Good range of motion to the upper lower extremities. Impression: Nausea, vomiting secondary to bilateral pyelonephritis with left ureteritis Acute renal injury likely from dehydration and above Diabetes mellitus type 2 Hypertension Elevated liver function with hyperbilirubinemia likely related to fatty liver with history of cholecystectomy, no common bile duct dilation Uterine fibroids Plan: Nausea, vomiting secondary to bilateral pyelonephritis with left ureteritis: Continue with IV Levaquin. Blood and urine cultures obtained. Will provide medication for pain. Continue monitor closely. Anticipate improvement and possible discharge in the next 48-72 hr. Acute renal injury likely from dehydration and above: Continue IV fluid hydration. Diabetes mellitus type 2: Continue with sliding scale. Will check A1c. Hold metformin at this time due to acute renal injury. Hypertension: Blood pressure stable off medication. May need to restart Norvasc and lisinopril if blood pressure starts to rise. Elevated liver function with hyperbilirubinemia likely related to fatty liver with history of cholecystectomy, no common bile duct dilation: Overall improved. Continue IV fluids. Uterine fibroids: This can be further addressed as an outpatient. Time Spent Managing Pts Care (In Minutes): 55
[2020-10-14] MEDS: ASCORBIC ACID 500 MG TABLET PO SCH ×2 (13:09→20:31)
[2020-10-14] MEDS: MELATONIN 5 MG TABLET PO SCH (20:31)
[2020-10-14] MEDS: THIAMINE HCL 100 MG TABLET PO SCH (20:31)
[2020-10-14] MEDS: Levofloxacin 750mg IV 750 MG/150 ML BAG IV SCH (21:21)
[2020-10-15] MEDS: HYDRALAZINE HCL 20 MG/ML VIAL IV PRN (04:07)
[2020-10-15 04:13] LABS: Absolute Lymphocytes (CBC) 0.5 K/uL (0.7-4.9); Basophils % 0.1 % (0-1.3); Hematocrit 34.2 % (36.0-45.0); Lymphocytes % 5.7 % (15.3-44.8); MPV 9.4 fL (7.6-11.3); RBC Red Blood Cell Count 4.24 M/uL (3.86-4.86)
[2020-10-15 04:32] LABS: Albumin 2.2 g/dL (3.4-5.0); Bilirubin Total 1.5 mg/dL (0.2-1.0); Ferritin 361.3 ng/mL (8-388); Magnesium 2.5 mg/dL (1.8-2.4); Protein, Total 6.6 g/dL (6.4-8.2)
[2020-10-15] MEDS: NA CHLORIDE 0.9% 1,000 ML IV SCH ×4 (05:45→17:48)
[2020-10-15] MEDS: INSULIN -REGULAR HUMAN 50 UNIT/0.5 ML ML SQ SCH ×4 (07:30→21:00)
[2020-10-15] MEDS: ONDANSETRON 4 MG/2 ML VIAL IV PRN (07:42)
[2020-10-15] MEDS: ZINC SULFATE 220 MG CAP PO SCH (08:45)
[2020-10-15] MEDS: ASCORBIC ACID 500 MG TABLET PO SCH ×3 (08:45→20:05)
[2020-10-15] MEDS: VITAMIN D 1000 UNIT TAB PO SCH (08:45)
[2020-10-15] MEDS: FAMOTIDINE 20 MG TAB PO SCH (08:46)
[2020-10-15] MEDS: THIAMINE HCL 100 MG TABLET PO SCH ×2 (08:46→20:06)
[2020-10-15] MEDS: ENOXAPARIN 40 MG/0.4 ML SQ SCH (08:47)
--- NOTE | 2020-10-15 16:18 | P.PN ---
Subjective Date of Service: 10/15/20 Primary Care Provider: unknown Chief Complaint: Nausea and vomiting Subjective: Improving Physical Examination - Vital Signs Temperature: 97.9 F Blood Pressure: 134/63 Pulse: 89 Respirations: 20 Pulse Ox (%): 95 - Studies Microbiology Data (last 24 hrs): 10/13/20 20:30 Clean Catch Urine University Count - Final >100,000 CFU/ML. 10/13/20 20:30 Clean Catch Urine - Final Escherichia Coli Assessment & Plan Discharge Plan: Home Plan to discharge in: 24 Hours Physician Review Additional Text: Physical exam: Patient alert, cooperative. No acute distress noted. Heart: Regular rate and rhythm Lungs: Clear to auscultation Abdomen: Flank pain noted bilateral. Abdomen soft. Nondistended. Extremities: Good range of motion to the upper lower extremities. Impression: Nausea, vomiting secondary to bilateral pyelonephritis with left ureteritis, Urine culture positive for E Coli Acute renal injury likely from dehydration and above Diabetes mellitus type 2 Hypertension Elevated liver function with hyperbilirubinemia likely related to fatty liver with history of cholecystectomy, no common bile duct dilation Uterine fibroids Plan: Nausea, vomiting secondary to bilateral pyelonephritis with left ureteritis, Urine culture positive for E Coli: Culture reviewed. Continue with IV Levaquin. Anticipate improvement with pain and nausea. Likely home tomorrow if much improved. Acute renal injury likely from dehydration and above: Continue IV fluid hydration. Diabetes mellitus type 2: Continue with sliding scale. Hemoglobin A1c 6.9. Hold metformin at this time due to acute renal injury. Hypertension: Blood pressure stable off medication. May need to restart Norvasc and lisinopril if blood pressure starts to rise. Elevated liver function with hyperbilirubinemia likely related to fatty liver with history of cholecystectomy, no common bile duct dilation: This has improved with IV fluids. Uterine fibroids: This can be further addressed as an outpatient. Time Spent Managing Pts Care (In Minutes): 55
[2020-10-15] MEDS: MELATONIN 5 MG TABLET PO SCH (20:05)
[2020-10-15] MEDS ORDERED: Levofloxacin 750mg IV 750 MG/150 ML BAG IV SCH (22:00)
[2020-10-15] MEDS: Levofloxacin 750mg IV 750 MG/150 ML BAG IV SCH (22:15)
[2020-10-16] MEDS: NA CHLORIDE 0.9% 1,000 ML IV SCH ×2 (03:38→13:59)
[2020-10-16 04:05] LABS: Absolute Lymphocytes (CBC) 1.1 K/uL (0.7-4.9); Basophils % 0.1 % (0-1.3); Hematocrit 36.3 % (36.0-45.0); Lymphocytes % 11.4 % (15.3-44.8); MPV 9.1 fL (7.6-11.3); RBC Red Blood Cell Count 4.53 M/uL (3.86-4.86)
[2020-10-16 04:14] LABS: Albumin 2.3 g/dL (3.4-5.0); Magnesium 2.1 mg/dL (1.8-2.4); Potassium 3.5 mmol/L (3.5-5.1); Protein, Total 6.5 g/dL (6.4-8.2)
[2020-10-16] MEDS: HYDRALAZINE HCL 20 MG/ML VIAL IV PRN ×2 (05:14→13:58)
[2020-10-16 05:38] VITALS: BMI 39.2
[2020-10-16] MEDS: INSULIN -REGULAR HUMAN 50 UNIT/0.5 ML ML SQ SCH ×3 (07:30→16:02)
[2020-10-16] MEDS: IVERMECTIN 3 MG TABLET PO SCH (08:03)
[2020-10-16] MEDS: ASCORBIC ACID 500 MG TABLET PO SCH ×2 (08:04→14:00)
[2020-10-16] MEDS: VITAMIN D 1000 UNIT TAB PO SCH (08:07)
[2020-10-16] MEDS: THIAMINE HCL 100 MG TABLET PO SCH (08:07)
[2020-10-16] MEDS: FAMOTIDINE 20 MG TAB PO SCH (08:07)
[2020-10-16] MEDS: ZINC SULFATE 220 MG CAP PO SCH (08:08)
[2020-10-16] MEDS: ENOXAPARIN 40 MG/0.4 ML SQ SCH (08:08)
[2020-10-16] MEDS: ONDANSETRON 4 MG/2 ML VIAL IV PRN (08:44)
--- NOTE | 2020-10-16 13:53 | P.DS ---
Admission Date: 10/14/20 Discharge Date: 10/16/20 Primary Care Provider: unknown Disposition: ROUTINE DISCHARGE Discharge Condition: GOOD Reason for Admission: Nausea and vomiting Consultations: none Procedures: COVID: Positive CT scan: FINDINGS: Clear lung bases. Heart is normal in size. Normal liver size and contour.Mild fatty infiltration. There is mild postcholecystectomy biliary dilatation. No obstructing stone or mass. Normal spleen. Accessory splenule adjacent to the splenic hilum. Normal pancreas, adrenal glands. There are mild low-attenuation parenchymal defects within the right upper and lower pole of the kidney as well as throughout the left kidney. There is mild bilateral perinephric edema, left greater than right. There is subtle urothelial enhancement within the left renal pelvis and proximal left ureter. There is minimal fullness of the right renal pelvis. There is no obstructing stone or mass in either collecting system. Normal aorta and inferior vena cava caliber. No retroperitoneal lymphadenopathy. Mesenteric vessels appear normal. Normal stomach. Small bowel loops are unremarkable. Appendix is not seen. Mild diverticulosis in the proximal sigmoid colon. No diverticulitis. There is no ascites or free air. No mesenteric adenopathy. Normal bladder. There are heterogeneous slightly hyperdense masses within the uterus. The largest is in the anterior left lower uterine segments, 4 cm, compatible with fibroids. No pelvic adenopathy. Mild degenerative changes in the thoracic and lumbar spine. Intact bony pelvis. Normal hips. IMPRESSION: 1. Mild bilateral pyelonephritis without abscess. Mild left ureteritis. Minimal fullness of the right renal pelvis with no obstructing stone or mass. 2. Very mild hepatic steatosis. 3. Mild sigmoid colon diverticulosis without diverticulitis. 4. Uterine fibroids. Medical problem list: Nausea, vomiting secondary to bilateral pyelonephritis with left ureteritis, Urine culture positive for E Coli Acute renal injury likely from dehydration and above Diabetes mellitus type 2 Hypertension Elevated liver function with hyperbilirubinemia likely related to fatty liver with history of cholecystectomy, no common bile duct dilation Uterine fibroids Brief History of Present Illness: 55-year-old female with history of diabetes, hypertension presented to the emergency room with nausea, vomiting and abdominal pain. Patient found to have bilateral pyelonephritis. Patient admitted for further evaluation and treatment. Hospital Course: Patient presented with nausea, vomiting secondary to bilateral pyelonephritis with left ureteritis. Patient received IV antibiotic therapy and IV fluids. Her condition is improved. Urine culture was positive for E coli. Aldana sensitivity noted. Blood cultures negative. At discharge patient will continue with Levaquin 750 mg daily for 11 more days. Education on pyelonephritis will be provided. Recommend to follow up with PCP in 1 week to follow up this hospitalization. Recommend to recheck urine culture after that time to monitor resolution. Education on prevention of UTI will be provided. Patient with diabetes mellitus type 2. Hemoglobin A1c well controlled. At discharge she will continue with metformin 500 mg 1 pill twice daily. Recommend to maintain blood sugar less than 140 fasting and less than 200 after meals. Further adjustment can be done by her PCP. Patient with hypertension. At discharge patient will continue with her medications of Norvasc 5 mg daily and lisinopril 20 mg daily. Recommend to monitor blood pressure daily. Recommend to maintain blood pressure less than 130/80. Further adjustment can be done by her PCP. May need to hold medication if blood pressure systolic less than 110. Patient had elevated liver function. Patient with fatty liver. This appears resolved. Education on fatty liver provided. Recommend follow up with PCP to further monitor and address. CT scan also revealed uterine fibroids. Recommend follow up with gynecology to further monitor and address. Patient also tested positive for COVID 19. She is asymptomatic from a respiratory standpoint. At discharge she may continue with vitamin supplementation including vitamin-C 500 mg 3 times a day, vitamin-D 2000 units daily, melatonin 5 mg at bedtime, thiamine 100 mg 1 pill twice daily, and zinc 220 mg daily. Patient will continue with CDC guidelines on the COVID 19 including isolation for at least 10 days. Encourage face mask use, hand washing, and social distancing. Vital Signs/Physical Exam: Temp Pulse Resp BP Pulse Ox 98.4 F 92 H 16 161/77 H 94 10/16/20 12:00 10/16/20 12:00 10/16/20 12:00 10/16/20 12:00 10/16/20 12:00 General: Alert, In no apparent distress, Oriented x3, Cooperative HEENT: Atraumatic Neck: Supple Respiratory: Clear to auscultation bilaterally, Normal air movement Cardiovascular: Normal pulses, Regular rate/rhythm Gastrointestinal: Normal bowel sounds, No ascites, No tenderness, No masses, No rebound, No guarding Integumentary: No tenderness/swelling Neurological: Normal speech, Normal strength at 5/5 x4 extr, Normal tone, Normal affect Laboratory Data at Discharge: WBC 9.20 K/uL (4.3-10.9) 10/16/20 03:04 Hgb 12.1 g/dL (12.0-15.0) 10/16/20 03:04 Hct 36.3 % (36.0-45.0) 10/16/20 03:04 Plt Count 248 K/uL (152-406) D 10/16/20 03:04 Sodium 145 mmol/L (136-145) 10/16/20 03:04 Potassium 3.5 mmol/L (3.5-5.1) 10/16/20 03:04 BUN 15 mg/dL (7-18) 10/16/20 03:04 Creatinine 0.86 mg/dL (0.55-1.3) 10/16/20 03:04 Glucose 140 mg/dL (74-106) H 10/16/20 03:04 Magnesium 2.1 mg/dL (1.8-2.4) 10/16/20 03:04 Total Bilirubin 1.0 mg/dL (0.2-1.0) 10/16/20 03:04 AST 34 U/L (15-37) 10/16/20 03:04 ALT 62 U/L (12-78) 10/16/20 03:04 Alkaline Phosphatase 219 U/L (45-117) H 10/16/20 03:04 Lipase 89 U/L (73-393) 10/13/20 20:15 Home Medications: Amlodipine [Norvasc*] 5 mg PO DAILY 10/14/20 Metformin ER [Glucophage ER*] 500 mg PO BID 10/14/20 lisinopriL [Lisinopril] 20 mg PO DAILY 10/14/20 Ascorbic Acid [Vitamin C*] 500 mg PO TID #90 tablet 10/16/20 Cholecalciferol (Vitamin D3) [Vitamin D 1000 Iu Tab*] 2,000 unit PO DAILY #60 tab 10/16/20 Melatonin 5 mg PO BEDTIME #30 tablet 10/16/20 Thiamine HCl [Vitamin B-1*] 100 mg PO BID #60 tablet 10/16/20 Zinc Sulfate [Zinc Sulfate*] 220 mg PO DAILY #30 cap 10/16/20 levoFLOXacin [Levaquin*] 750 mg PO 2100 #11 tab 10/16/20 New Medications: levoFLOXacin [Levaquin*] 750 mg PO 2100 #11 tab Melatonin 5 mg PO BEDTIME #30 tablet Thiamine HCl [Vitamin B-1*] 100 mg PO BID #60 tablet Ascorbic Acid [Vitamin C*] 500 mg PO TID #90 tablet Cholecalciferol (Vitamin D3) [Vitamin D 1000 Iu Tab*] 2,000 unit PO DAILY #60 tab Zinc Sulfate [Zinc Sulfate*] 220 mg PO DAILY #30 cap Physician Discharge Instructions: Recommend follow up with PCP in 1 week to follow up this hospitalization. Patient presented with nausea, vomiting secondary to bilateral pyelonephritis with left ureteritis. Patient received IV antibiotic therapy and IV fluids. Her condition is improved. Urine culture was positive for E coli. Aldana sensitivity noted. Blood cultures negative. At discharge patient will continue with Levaquin 750 mg daily for 11 more days. Education on pyelonephritis will be provided. Recommend to follow up with PCP in 1 week to follow up this hospitalization. Recommend to recheck urine culture after that time to monitor resolution. Education on prevention of UTI will be provided. Patient with diabetes mellitus type 2. Hemoglobin A1c well controlled. At discharge she will continue with metformin 500 mg 1 pill twice daily. Recommend to maintain blood sugar less than 140 fasting and less than 200 after meals. Further adjustment can be done by her PCP. Patient with hypertension. At discharge patient will continue with her medications of Norvasc 5 mg daily and lisinopril 20 mg daily. Recommend to monitor blood pressure daily. Recommend to maintain blood pressure less than 130/80. Further adjustment can be done by her PCP. May need to hold medication if blood pressure systolic less than 110. Patient had elevated liver function. Patient with fatty liver. This appears resolved. Education on fatty liver provided. Recommend follow up with PCP to further monitor and address. CT scan also revealed uterine fibroids. Recommend follow up with gynecology to further monitor and address. Patient also tested positive for COVID 19. She is asymptomatic from a respiratory standpoint. At discharge she may continue with vitamin supplementation including vitamin-C 500 mg 3 times a day, vitamin-D 2000 units daily, melatonin 5 mg at bedtime, thiamine 100 mg 1 pill twice daily, and zinc 220 mg daily. Patient will continue with CDC guidelines on the COVID 19 including isolation for at least 10 days. Encourage face mask use, hand washing, and social distancing. Diet: ADA Activity: Ad yady Followup: OOT,OOT [Primary Care Provider] - Time spent managing pt's care (in minutes): 55
[2020-10-16 16:03] VITALS: O2SAT 95
[2020-10-16 16:14] VITALS: BP 169/79; TEMP 97.3
--- NOTE | 2020-10-16 18:44 | CON ---
Date of Consultation: 10/16/2020 Reason For Consultation: Elevated BUN and creatinine. History Of Present Illness: This is a 55-year-old woman with significant past medical history of hypertension, diabetes complicated with neuropathy, no retinopathy, on metformin, hyperlipidemia, the patient came to the hospital complaining from cough. The patient found to have elevation in BUN and creatinine. For that reason, we have been consulted. The patient denied taking any IV contrast. The patient took ibuprofen in the last couple of days, found to have UTI. Past Medical History: Includes; 1. Diabetes. 2. Hypertension. 3. Hyperlipidemia. Past Surgical History: Includes cholecystectomy, appendectomy. Social History: Denied smoking, denied drinking, denied drugs abuse. Allergies: TO TYLENOL AND PENICILLIN. Review of Systems: Head and Neck: No red eye. No ear pain. GI: Has abdominal pain. : No polyuria. No dysuria. No hematuria. FLOOR PERSON: No vaginal discharge. Respiratory: Has cough. Endocrine: No polydipsia. Skin: No rash. Neuro: Has neuropathy. Musculoskeletal: Flank pain. Home Medications: Include amlodipine, lisinopril, metformin, Levaquin, thiamin, cholecalciferol, vitamin C. Physical Examination: Vital Signs: When I saw the patient; blood pressure 161/77, pulse of 92. Chest: Clear to auscultation. Heart: S1, S2. Regular. Abdomen: Soft. Mild tenderness on the left upper quadrant. No guarding or rebound. Extremities: No edema. Neurologic: Alert. No focality. Current Medications: The patient on include Levaquin, amlodipine 5 mg, lisinopril, ketorolac, metformin. Laboratory Data: Sodium 137, potassium 3.6, bicarb 26, BUN 19, creatinine 1.2. Today lab data; sodium 141, potassium 4, bicarb 26, BUN 15, creatinine 0.8, calcium 8.2. CT abdomen and pelvis with contrast, no hydronephrosis, has bilateral pyelonephritis. Assessment And Plan: 1. Acute kidney injury secondary to toxic acute tubular necrosis secondary to urinary tract infection/prerenal, recovered, resolved. I am going to discontinue ketorolac, discontinue IV fluid. The patient cleared from the renal standpoint for discharge planning. 2. Urinary tract infection. I agree with Levaquin. 3. Hypertension. Continue YEMI inhibitor. 4. Hypokalemia. We will supplement. 5. COVID pneumonia as by primary. The patient cleared from the renal standpoint for discharge planning. Time spent discussing with the patient, examining the patient, exam [id number], placing order, discussing with staff and other consulting include including Cardiology and Primary 75 minutes. ALEKSANDRA Voice ID: [id number] Report ID: [id number] [facility]ITALE[facility]i
[2020-10-16] MEDS ORDERED: levoFLOXacin 750 MG TAB PO SCH (21:00)
[2020-10-16] MEDS ORDERED: METFORMIN ER 500 MG TAB PO SCH (21:00)
[2020-10-17] MEDS ORDERED: lisinopriL 20 MG TAB PO SCH (09:00)
[2020-10-17] MEDS ORDERED: AMLODIPINE 5 MG TAB PO SCH (09:00)
== END 2020-10-16 17:54 | disposition home or self-care (01) | DRG 689 ==
LOC: ER 18:04 → ERHOLD 23:09 → 4TH 10-14 07:34 → OBSVTOIN 10-14 12:12
PROVIDERS: ADMIT Internal Medicine; ATTEND Family Medicine
DX: N10 Acute pyelonephritis (principal); U07.1 COVID-19; J12.82 Pneumonia due to coronavirus disease 2019; N17.0 Acute kidney failure with tubular necrosis; I10 Essential (primary) hypertension; E78.5 Hyperlipidemia, unspecified; E87.6 Hypokalemia; D25.9 Leiomyoma of uterus, unspecified; N28.89 Other specified disorders of kidney and ureter; E11.40 Type 2 diabetes mellitus with diabetic neuropathy, unspecified; K76.0 Fatty (change of) liver, not elsewhere classified; E86.0 Dehydration; E66.9 Obesity, unspecified; B96.20 Unspecified Escherichia coli [E. coli] as the cause of diseases classified elsewhere; R79.89 Other specified abnormal findings of blood chemistry; Z88.0 Allergy status to penicillin; Z88.5 Allergy status to narcotic agent; Z90.49 Acquired absence of other specified parts of digestive tract; Z79.84 Long term (current) use of oral hypoglycemic drugs; Z68.39 Body mass index [BMI] 39.0-39.9, adult
CPT/HCPCS: 36415; 74177; 80048; 80053; 80076; 81003; 81015; 82728; 82947; 83036; 83605; 83690; 83735; 84443; 85025; 86140; 87040; 87077; 87086; 87088; 87186; 87205; 93005; 96361; 96365; 96375; 99284; J0360; J1650; J2405; J7030; J8540; Q9967; U0003

== ENCOUNTER 2021-06-27 20:07 | Emergency (ER) | payer OTHER, BC ==
[2021-06-27] MEDS ORDERED: IBUPROFEN 400 MG TAB ONE (21:10)
--- NOTE | 2021-06-27 21:42 | ER ---
Nurse's Notes [facility] Name: Bryon Ortiz Age: 55 yrs Sex: Female : 1965 Arrival Date: 06/27/2021 Time: 20:11 Bed 11 Private MD: Diagnosis: Nondisplaced fracture of left fibula Presentation: 06/27 20:14 Chief complaint: Patient states: "I was at work and I slipped and fell, I heard my left ld1 ankle pop.". Coronavirus screen: At this time, the client does not indicate any symptoms associated with coronavirus-19. Ebola Screen: No symptoms or risks identified at this time. Initial Sepsis Screen: Does the patient meet any 2 criteria? No. Patient's initial sepsis screen is negative. Does the patient have a suspected source of infection? No. Patient's initial sepsis screen is negative. Risk Assessment: Do you want to hurt yourself or someone else? Patient reports no desire to harm self or others. Onset of symptoms was June 27, 2021 at 20:16. 20:14 Method Of Arrival: Wheelchair ld1 20:14 Acuity: DELORES 4 ld1 Triage Assessment: 20:16 General: Appears in no apparent distress. comfortable, Behavior is calm, cooperative, ld1 appropriate for age. Pain: Complains of pain in anterior aspect of left ankle Pain does not radiate. Pain currently is 8 out of 10 on a pain scale. Quality of pain is described as throbbing, Pain began 1 hour ago. Is continuous. Neuro: Level of Consciousness is awake, alert, obeys commands, Oriented to person, place, time, situation. Musculoskeletal: Reports pain in anterior aspect of left ankle. COLLECTION SYSTEMS CONSULTANT: 20:16 LMP N/A - Post-menopause ld1 Historical: - Allergies: 20:16 PENICILLINS; ld1 20:16 Tylenol; ld1 - Home Meds: 20:16 hydrochlorothiazide 12.5 mg Oral tab 1 tab once daily [Active]; metformin 500 mg Oral ld1 tab 1 tab 2 times per day [Active]; valsartan 160 mg Oral tab 1 tab once daily [Active]; - PMHx: 20:16 Diabetes - NIDDM; Hypertension; ld1 - PSHx: 20:16 Cholecystectomy; Appendectomy; ld1 - Immunization history:: Adult Immunizations up to date, Client reports receiving the 2nd dose of the Covid vaccine. - Social history:: Smoking status: Patient denies any tobacco usage or history of. Patient/guardian denies using alcohol, street drugs. Screenin:52 Abuse screen: Denies threats or abuse. Nutritional screening: No deficits noted. fu Tuberculosis screening: No symptoms or risk factors identified. Fall Risk None identified. Assessment: 20:50 General: Appears in no apparent distress. Behavior is calm, cooperative, appropriate fu for age, Denies fever, feeling ill, fatigue, chills. Pain: Complains of pain in left ankle Pain does not radiate. Pain currently is 8 out of 10 on a pain scale. Pain began 2 hours ago. Neuro: Level of Consciousness is awake, alert, obeys commands, Oriented to person, place, time, situation, Galvanizer are equal bilaterally Moves all extremities. Gait is unsteady, Speech is normal, Facial symmetry appears normal. Cardiovascular: No deficits noted. Respiratory: No deficits noted. GI: No deficits noted. : No deficits noted. Derm: mild swelling to the left ankle. Musculoskeletal: Range of motion: limited in left ankle. 21:28 Reassessment: Patient and/or family updated on plan of care and expected duration. Pain fu level reassessed. Patient is alert, oriented x 3, equal unlabored respirations, skin warm/dry/pink. Vital Signs: 20:14 BP 171 / 87; Pulse 79; Resp 18; Temp 97.8(TE); Pulse Ox 96% on R/A; Weight 86.18 kg; ld1 Height 4 ft. 11 in. (149.86 cm); Pain 8/10; 20:54 BP 140 / 91; Pulse 74; Resp 16; Temp 97.8; Pulse Ox 97% on R/A; Pain 8/10; fu 22:15 BP 125 / 72; Pulse 76; Resp 16; Pulse Ox 99% on R/A; Pain 4/10; fu 20:14 Body Mass Index 38.37 (86.18 kg, 149.86 cm) ld1 ED Course: 20:11 Patient arrived in ED. as 20:16 Triage completed. ld1 20:16 Arm band placed on. ld1 20:17 Concepción Belcher FNP-C [facility] 20:17 Jack Steward MD is Attending Physician. kb 20:41 Jose Cordoba, RN is Primary Nurse. fu 21:19 Ankle Left 3 View XRAY In Process Unspecified. EDMS 22:29 Crutch training done. Orthoglass splint: Posterior short lleg splint applied on left oe leg. 23:00 Patient has correct armband on for positive identification. Bed in low position. Side fu rails up X 1. Pulse ox on. NIBP on. 23:00 No provider procedures requiring assistance completed. Patient did not have IV access fu during this emergency room visit. Administered Medications: 20:50 Drug: Ibuprofen 800 mg Route: PO; fu 22:21 Follow up: Response: Pain is decreased fu Outcome: :42 Discharge ordered by MD. kb 23:00 Discharged to home via wheelchair, with crutches. fu 23:00 Condition: good 23:00 Discharge instructions given to patient, Instructed on discharge instructions, follow up and referral plans. crutch walking, Demonstrated understanding of instructions, follow-up care, Prescriptions given X 1. 23:02 Patient left the ED. fu Signatures: Dispatcher [employer] EDMS Concepción Belcher, MERCHANDISE MANAGER-C MERCHANDISE MANAGER-Ckb Ligia Ferreira Orlando oe Jose Cordoba, RN RN Radha Lu RN RN ld1 Corrections: (The following items were deleted from the chart) 22:31 22:29 Orthoglass splint: Posterior short lleg splint applied on left leg. oe oe
--- NOTE | 2021-06-27 21:42 | EDPHYS ---
Physician Documentation [facility] Name: Bryon Ortiz Age: 55 yrs Sex: Female : 1965 Arrival Date: 06/27/2021 Time: 20:11 Bed 11 Private MD: ED Physician Jack Steward HPI: 06/27 21:17 This 55 yrs old Female presents to ER via Wheelchair with complaints of Ankle kb Injury. 21:17 The patient presents with an injury, pain, swelling, tenderness. The complaints affect kb the left ankle. Onset: The symptoms/episode began/occurred today. Context: The problem was sustained at work, resulted from the patient falling, while walking, The patient can fully bear weight on the affected extremity. the patient is able to ambulate. Associated signs and symptoms: Pertinent positives: swelling, Pertinent negatives: calf tenderness, fever, nausea, numbness, rash, tingling, vomiting, warmth, weakness. Modifying factors: The symptoms are alleviated by nothing, the symptoms are aggravated by weight bearing. Severity of symptoms: At their worst the symptoms were moderate, in the emergency department the symptoms are unchanged. The patient has not experienced similar symptoms in the past. The patient has not recently seen a physician. 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 - Social history:: Smoking status: Patient denies any tobacco usage or history of. Patient/guardian denies using alcohol, street drugs. ROS: 21:16 Constitutional: Negative for fever, chills, and weight loss. kb 21:16 MS/extremity: Positive for pain, swelling, tenderness, of the left lateral ankle. 21:16 All other systems are negative. Exam: 21:16 Constitutional: This is a well developed, well nourished patient who is awake, alert, kb and in no acute distress. Head/Face: Normocephalic, atraumatic. ENT: Moist Mucous membranes Respiratory: Respirations even and unlabored. No increased work of breathing, no retractions or nasal flaring. Skin: Warm, dry with normal turgor. Normal color. Neuro: Awake and alert, GCS 15, oriented to person, place, time, and situation. Moves all extremities. Normal gait. Psych: Awake, alert, with orientation to person, place and time. Behavior, mood, and affect are within normal limits. 21:16 Musculoskeletal/extremity: Extremities: grossly normal except: noted in the left lateral ankle: pain, swelling, tenderness, ROM: intact in all extremities, Circulation is intact in all extremities. Sensation intact. Weight bearing: able to fully bear weight. Vital Signs: 20:14 BP 171 / 87; Pulse 79; Resp 18; Temp 97.8(TE); Pulse Ox 96% on R/A; Weight 86.18 kg; ld1 Height 4 ft. 11 in. (149.86 cm); Pain 8/10; 20:54 BP 140 / 91; Pulse 74; Resp 16; Temp 97.8; Pulse Ox 97% on R/A; Pain 8/10; fu 22:15 BP 125 / 72; Pulse 76; Resp 16; Pulse Ox 99% on R/A; Pain 4/10; fu 20:14 Body Mass Index 38.37 (86.18 kg, 149.86 cm) ld1 MDM: 20:21 Patient medically screened. kb 21:16 Data reviewed: vital signs, nurses notes. Data interpreted: Pulse oximetry: on room air kb is 97 %. Interpretation: normal. 21:35 Counseling: I had a detailed discussion with the patient and/or guardian regarding: the kb historical points, exam findings, and any diagnostic results supporting the discharge/admit diagnosis, radiology results, the need for outpatient follow up, a orthopedic surgeon, to return to the emergency department if symptoms worsen or persist or if there are any questions or concerns that arise at home. 06/27 20:17 Order name: Ankle Left 3 View XRAY; Complete Time: 22:05 kb 06/27 21:41 Order name: Crutches; Complete Time: 22:06 kb 06/27 22:11 Order name: Short Leg Splint; Complete Time: 22:21 kb Administered Medications: 20:50 Drug: Ibuprofen 800 mg Route: PO; fu 22:21 Follow up: Response: Pain is decreased fu Disposition: 06/28 04:44 Co-signature as Attending Physician, Jack Steward MD. [email or web address] Disposition Summary: 06/27/21 21:42 Discharge Ordered Location: Home kb Condition: Stable kb Diagnosis - Nondisplaced fracture of left fibula kb Followup: kb - With: Emergency Department - When: As needed - Reason: Worsening of condition Followup: kb - With: Private Physician - When: 2 - 3 days - Reason: Recheck today's complaints, Continuance of care, Re-evaluation by your physician Discharge Instructions: - Discharge Summary Sheet kb - Ankle Fracture, [id number] kb Forms: - Medication Reconciliation Form kb - Thank You Letter kb - Antibiotic Education kb - Prescription Opioid Use kb - Work release form fu Prescriptions: - Diclofenac Sodium 75 mg Oral tablet,delayed release (DR/EC) - take 1 tablet by ORAL route 2 times per day As needed; 30 tablet; Refills: 0, kb Product Selection Permitted Signatures: Dispatcher [employer] EDMS Concepción Belcher, CLINICAL CARE LEADER-C CLINICAL CARE LEADER-Jose Murillo, RN Jack Barrett MD MD 7 Radha Lu RN RN ld1 Corrections: (The following items were deleted from the chart) 06/27 22:06 21:42 Sprain of ankle kb 22:11 21:35 Jose wrap-joint ordered. kb kb
--- NOTE | 2021-06-27 22:01 | RAD REPORT ---
EXAM DESCRIPTION: RAD - Ankle Left 3 View - 06/27/2021 9:19 pm CLINICAL HISTORY: PAIN COMPARISON: None FINDINGS: Lateral soft tissue swelling is present. There is a transverse fracture at the tip of the fibula with no distraction. No other fracture findings. No dislocation periosteal reaction. No joint effusion seen. No joint space narrowing. IMPRESSION: Transverse fracture at the tip of the fibula with no distraction of the small fracture f ragment. Lateral soft tissue swelling.
[2021-06-27 23:23] VITALS: TEMP 97.8
[2021-06-27 23:26] VITALS: BP 125/72; O2SAT 99
== END 2021-06-27 23:02 | disposition home or self-care (01) ==
LOC: ER 20:07
PROC: 2W3RX1Z Immobilization of Left Lower Leg using Splint (ICD-10-PCS; principal; 2021-06-27)
DX: S82.402A Unspecified fracture of shaft of left fibula, initial encounter for closed fracture (principal); W18.30XA Fall on same level, unspecified, initial encounter; Y93.01 Activity, walking, marching and hiking; Y92.89 Other specified places as the place of occurrence of the external cause; Y99.8 Other external cause status; I10 Essential (primary) hypertension; E11.9 Type 2 diabetes mellitus without complications; Z88.0 Allergy status to penicillin; Z88.6 Allergy status to analgesic agent
CPT/HCPCS: 99284